=== PATIENT | female | born 1955 | race Caucasian/White ===

== ENCOUNTER 2024-12-12 08:13 | Emergency (ER) | payer MEDICARE ==
[~2024-12-12] VITALS: Ht 152.4 cm; Wt 60.9 kg
--- NOTE | 2024-12-12 08:51 | Physician Documentation ---
History of Present Illness ~ Chief Complaint: Bite-animal Stated Complaint: DOG BITE/FINGER LAC Time Seen by MD: 08:22 HPI 69-year-old female presenting with a dog bite on her right index finger that occurred about 30 minutes prior to arrival. She states that she was walking her dog when the neighbor's dog came and attacked and she pulled her dog away. The neighbor's dog may have accidentally bit her finger. She states that her tetanus is not up-to-date. She has some numbness distal to the bite area but has full range of motion of her finger. Tetanus within 5 years?: No Medication Reconciliation Allergies: Coded Allergies: Sulfa (Sulfonamide Antibiotics) (Verified Allergy, Unknown, 12/12/24) Scheduled Amox Tr/Potassium Clavulanate (Augmentin 875-125 Tablet), 1 TAB PO Q12H Past Medical History Past Medical History: No Pertinent History Review of Systems All Other Systems at this time: Reviewed and Negative Physical Exam Vital Signs: Temperature: 97.5, Source: Temporal, Heart Rate: 102, Respiratory Rate: 18, BP: 147/100, Pulse Oximetry: 98, Weight: 60.910 Physical Exam I have reviewed the triage vitals. CONST: Well developed and well nourished. In no acute distress HENT: Head Atraumatic EYES: Pupils are equal, round and reactive to light. Normal conjunctiva NECK: Normal range of motion. Supple. CARDIO: Normal rate and regular rhythm. No murmurs, rubs, or gallops. S1, S2. PULM/CHEST: No respiratory distress. Lungs clear to auscultation. No wheeze ABD: Soft and nontender. Nondistended. Bowel sounds normal. No guarding. : Exam deferred MSK: No edema. No deformity. Right hand index finger with a 2 cm laceration on the radial aspect of the proximal phalanx. Normal flexion and extension of the digit. There is some decreased sensation distal to the laceration. NEURO: Alert and oriented to person, place and time. Moving all extremities SKIN: Warm and dry. PSYCH: Normal mood and affect. Good eye contact. Progress Results/Orders Results/Orders Orders - ALLAN NORIEGA MD Finger(S) (12/12/24 08:51) Completed Orders - ALLAN NORIEGA MD Finger(S) (12/12/24 08:51) Tetanus/Pertuss/Diph Acell/Pf (Boostrix (12/12/24 08:55) Bacitracin Ointment (Bacitracin Ointment (12/12/24 09:20) Medications Received in ER Medications (Trade) Dose Ordered Sig/Reyna Route PRN Reason Start Time Stop Time Status Last Admin Dose Admin (Boostrix vaccine syringe) 0.5 ml ONCE ONCE IMVAC 12/12/24 08:55 12/12/24 08:56 DC 12/12/24 09:03 0.5 ML Vital Signs 12/12/24 12/12/24 08:17 09:09 Temp 97.5 97.5 Pulse 102 89 Resp 18 15 B/P (MAP) 147/100 137/78 (97) Pulse Ox 98 99 O2 Flow Rate 0 EKG/XRAY/CT/US/VASC/MRI Bone/Soft Tissue X-Ray (Ext.) : Interpreted By: self Views: 3 VIEW Indication: trauma Location: finger Impression: normal Additional Comment X-ray as interpreted by me. No fractures, dislocations or other bony abnormalities visualized. Medical Decision Making Additional Comment 69-year-old female presenting after a dog bite. Next ray of the finger was negative for fracture. Wound was cleaned. Her tetanus was updated. Patient was instructed on wound care. Advised to keep it covered and clean and dry. I advised her that the numbness in her finger may persist for several weeks or even months but should eventually resolve. She was advised to follow up with PCP or return to the ED in a couple of days for wound check if she develops any redness or drainage from the wound. Return to the ED sooner with any acutely worsening symptoms. Patient was prescribed Augmentin 875 mg for three days for prophylaxis. Departure Disposition: HOME / SELF CARE / HOMELESS Impression: Primary Impression: Dog bite Discharge Instructions: Animal Bite, Adult Additional Instructions: Keep the wound clean and dry and monitor for improvement and resolution. Take antibiotics as prescribed-Augmentin twice a day for 3 days. Follow up with primary care physician in the next 2-3 days for wound check or return to the ED should the wound not heal properly or develop any surrounding redness or drainage. Numbness of the finger may persist for several weeks or months but should eventually resolve. Referrals: NO PRIMARY CARE PROVIDER (PCP) Prescriptions Amox Tr/Potassium Clavulanate (Augmentin 875-125 Tablet) 1 Each Tablet 1 TAB PO Q12H for 3 Days, #6 TAB Prov: ALLAN NORIEGA MD 12/12/24 Education Educated: Patient Educated regarding: diagnosis, treatment, prognosis, need for follow up Signature Scribe Signature: 1 Attestation: 1 ALLAN NORIEGA MD Dec 12, 2024 08:51
[2024-12-12] MEDS ORDERED: AMOX-117 PO (09:01)
[2024-12-12] MEDS: TETanus/Pertussis (Acell)/Diphther VAC/PF (Tdap-Adult) 0.5ml syringe IMVAC ONE (09:03)
[2024-12-12 09:09] VITALS: BP 137/78; PULSE 89; RESP 15; TEMP 97.5; O2SAT 99
[2024-12-12] MEDS: bacitracin 15gm ointment TP ONE (09:34)
--- NOTE | 2024-12-12 10:10 | RADIOLOGY REPORT ---
CLINICAL INDICATION: trauma,RIGHT TECHNIQUE: 2 radiographic views of the right hand and 1 view of the right 4th digit were obtained. Comparison: None FINDINGS/IMPRESSION: Chronic appearing avulsive fracture at the base of the 4th proximal phalanx. 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
== END 2024-12-12 09:41 | disposition home or self-care (01) ==
LOC: ER 08:14
DX: S61.210A Laceration without foreign body of right index finger without damage to nail, initial encounter (principal); Z88.2 Allergy status to sulfonamides; W54.0XXA Bitten by dog, initial encounter; Y93.K1 Activity, walking an animal; Y92.89 Other specified places as the place of occurrence of the external cause; Y99.8 Other external cause status
CPT/HCPCS: 73140; 90715; 99283; G0008; 90471